=== PATIENT | female | born 1990 | race Two or more races ===

== ENCOUNTER 2017-12-04 16:13 | Emergency (ER) | payer SELFPAY ==
[2017-12-04] MEDS ORDERED: ACETAMINOPHEN 325 MG TABLET PO ONE (17:19)
[2017-12-04 18:05] LABS: ABSOLUTE EOSINOPHILS # (AUTO) 0.1 10^3/uL (0.0-0.6); ABSOLUTE LYMPHOCYTES (AUTO) 1.6 10^3/uL (0.5-4.7); ABSOLUTE MONOCYTES (AUTO) 0.6 10^3/uL (0.1-1.4); ABSOLUTE NEUT (AUTO) 5.6 10^3/uL (1.7-8.2); BASOPHILS % (AUTO) 0.6 % (0-2); HEMATOCRIT 37.2 % (36.0-47.0); HEMOGLOBIN 12.9 g/dL (12.0-15.5); LYMPHOCYTES % (AUTO) 19.7 % (13-45); MEAN CORPUSCULAR HEMOGLOBIN 29.2 pg (27.0-33.4); MEAN CORPUSCULAR HGB CONC 34.7 g/dL (32.0-36.0); MEAN CORPUSCULAR VOLUME 84 fl (80-97); MONOCYTES % (AUTO) 7.3 % (3-13); PLATELET COUNT 202 10^3/uL (150-450); RED BLOOD COUNT 4.43 10^6/uL (3.72-5.28); SEGMENTED NEUTROPHILS % (AUTO) 71.4 % (42-78); TOTAL CELLS COUNTED % (AUTO) 100 %; WHITE BLOOD COUNT 7.9 10^3/uL (4.0-10.5)
[2017-12-04 18:17] LABS: APPEARANCE,URINE CLEAR; BILIRUBIN,URINE NEGATIVE (NEGATIVE); COLOR,URINE STRAW; GLUCOSE, URINE NEGATIVE (NEGATIVE); KETONES,URINE 20 mg/dL (NEGATIVE); LEUKOCYTE ESTERASE,URINE NEGATIVE (NEGATIVE); NITRITE,URINE NEGATIVE (NEGATIVE); PROTEIN,URINE NEGATIVE (NEGATIVE); URINE SPECIFIC GRAVITY 1.005; UROBILINOGEN,URINE NEGATIVE mg/dL (<2.0)
--- NOTE | 2017-12-04 18:32 | RADIOLOGY REPORT (SQ) ---
EXAM DESCRIPTION: U/S 1TRIMESTER/1GEST W/DOPPLER COMPLETED DATE/TIME: 12/04/2017 6:20 pm REASON FOR STUDY: pelvic cramping and bleeding COMPARISON: None. TECHNIQUE: Transabdominal static and realtime grayscale images acquired of the pelvis. Additional se lected spectral and color Doppler images recorded. All images stored on PACs. bHCG: Not drawn PE LIMITATIONS: None. FINDINGS: FETUS: Living intrauterine . EGA: 13 weeks 6 day RALEIGH: 06/05/2018 FHR: 149 beats per minute. SUBCHORIONIC BLEED: No SIZE OF BLEED: Not applicable. UTERUS: No masses or anomalies. 11.2 x 10 x 9.2 cm. CERVICAL LENGTH: 2.2 cm. Closed. RIGHT ADNEXA: Normal ovary with normal vascular flow. 1.7 x 2 x 3 cm PE No adnexal free fluid. No adnexal masses. LEFT ADNEXA: Ovary not seen. No adnexal free fluid. No adnexal masses. FREE FLUID: None. OTHER: No other significant finding. IMPRESSION: LIVING INTRAUTERINE . EGA 13 weeks 6 days. Trimester of : 2nd TECHNICAL DOCUMENTATION: JOB ID: [id number] [employer]- All Rights Reserved Reading location - IP/workstation name: [email or web address]
[2017-12-04 18:33] LABS: ALANINE AMINOTRANSFERASE 20 U/L (9-52); ALBUMIN 3.7 g/dL (3.5-5.0); ALKALINE PHOSPHATASE 31 U/L (38-126); ANION GAP 10 (5-19); ASPARTATE AMINO TRANSFERASE 17 U/L (14-36); BILIRUBIN,DIRECT 0.1 mg/dL (0.0-0.4); BILIRUBIN,TOTAL 0.1 mg/dL (0.2-1.3); BLOOD UREA NITROGEN 10 mg/dL (7-20); CALCIUM 9.3 mg/dL (8.4-10.2); CARBON DIOXIDE 23 mmol/L (22-30); CHLORIDE 103 mmol/L (98-107); GLUCOSE 86 mg/dL (75-110); POTASSIUM 3.6 mmol/L (3.6-5.0); SODIUM 136.4 mmol/L (137-145); TOTAL PROTEIN 6.4 g/dL (6.3-8.2)
[2017-12-04 19:22] LABS: T.VAGINALIS (WET MOUNT) NO TRICHOMONAS SEEN; YEAST (WET MOUNT) NO YEAST SEEN
[2017-12-04 19:23] LABS: BACTERIA (WET MOUNT) 4+ BACTERIA SEEN; WBCS (WET MOUNT) 2+ WBCS SEEN
--- NOTE | 2017-12-04 19:39 | ER Document Report ---
ED GI/ - General Chief Complaint: Vag Bleeding, +preg <12wks Stated Complaint: STOMACH CRAMPING Time Seen by Provider: 12/04/17 17:28 Notes: Patient is a 13 week 27-year-old female presents emergency department the chief complaint of pelvic cramping and vaginal bleeding that started yesterday. She states that she has had spotting on and off for the past month. She states that yesterday she woke up some pelvic cramping that got worse today. She states that she went to the bathroom prior to arrival and noticed one blood clot in her underwear but denies any surrounding white tissue. She denies any vaginal bleeding since then. She admits to cramping but is not taking anything for it. She has any pyuria, hematuria. Admits to vaginal discharge over the past couple of days. [facility] TRAVEL OUTSIDE OF THE [place] IN LAST 30 DAYS: No - Related Data Allergies/Adverse Reactions: No Known Allergies Allergy (Verified 08/11/14 11:07) Past Medical History - Social History Smoking Status: Unknown if Ever Smoked Family History: Reviewed & Not Pertinent Patient has suicidal ideation: No Patient has homicidal ideation: No Renal/ Medical History: Denies: Hx Peritoneal Dialysis - Immunizations Hx Diphtheria, Pertussis, Tetanus Vaccination: Yes Review of Systems - Review of Systems Notes: REVIEW OF SYSTEMS: CONSTITUTIONAL : Denies fever, chills, or sweats. Denies recent illness. CARDIOVASCULAR: Denies chest pain. Denies palpitations or racing or irregular heart beat. Denies ankle edema. RESPIRATORY: Denies cough, cold, or chest congestion. Denies shortness of breath, difficulty breathing, or wheezing. GASTROINTESTINAL: Denies abdominal pain or distention. Denies nausea, vomiting , or diarrhea. Denies blood in vomitus, stools, or per rectum. Denies black, tarry stools. Denies constipation. GENITOURINARY: Denies difficulty urinating, painful urination, burning, frequency, blood in urine, or discharge. FEMALE GENITOURINARY: See HPI MUSCULOSKELETAL: Denies any muscle spasms, difficulty walking, extremity pain SKIN: Denies rash, lesions or sores. NEUROLOGICAL: Denies confusion or altered mental status. Denies passing out or loss of consciousness. Denies dizziness or lightheadedness. Denies headache. Denies weakness or paralysis or loss of use of either side. Denies problems with gait or speech. Denies sensory loss, numbness, or tingling. Denies seizures. PSYCHIATRIC: Denies anxiety or stress. Denies depression, suicidal ideation, or homicidal ideation. ALL OTHER SYSTEMS REVIEWED AND NEGATIVE. Dictation was performed using [employer] voice recognition software Physical Exam - Vital signs Vitals: Temp Pulse Resp BP Pulse Ox 97.8 F 66 14 119/79 100 12/04/17 16:20 12/04/17 16:20 12/04/17 16:20 12/04/17 16:20 12/04/17 16:20 - Notes Notes: PHYSICAL EXAM GENERAL: Alert, interacts well. LUNGS: Clear to auscultation bilaterally, no wheezes, rales, or rhonchi. No respiratory distress. HEART: Regular rate and rhythm. No murmurs, gallops, or rubs. ABDOMEN: Soft, nondistended, nontender. No guarding, rebound, or rigidity.. Bowel sounds present in all 4 quadrants. FEMALE : Normal external exam. No evidence of lesions, lacerations, bruising or vesicles. Speculum exam normal cervix closed. No evidence of vaginal discharge with odor. No evidence of lesions. No vaginal bleeding. Bimanual exam normal no cervical motion tenderness. No adnexal mass or adnexal tenderness. EXTREMITIES: Moves all 4 extremities spontaneously. No edema, radial and dorsalis pedis pulses 2/4 bilaterally. No cyanosis. NEUROLOGICAL: Alert and oriented x4. Normal speech. PSYCH: Normal affect, normal mood. SKIN: Warm, dry, normal turgor. No rashes or lesions noted. Course - Re-evaluation Re-evalutation: 12/04/17 19:39 Patient presents with a isolated event of vaginal bleeding in the setting of an early second trimester . Transvaginal ultrasound with viable IUP with HR of 149. No active bleeding at time of presentation. She is Rh positive. Patient's abdominal exam is otherwise benign without any focal tenderness. I do not suspect an acute appendicitis, pyelonephritis, cystitis, or bowel obstruction. At this time I have informed the patient that she needs to return to the emergency department or the women's clinic in 48 hours for recheck. At this time will discharge with return precautions and follow-up recommendations. Verbal discharge instructions given a the bedside and opportunity for questions given. Medication warnings reviewed. Patient is in agreement with this plan and has verbalized understanding of return precautions and the need for primary care follow-up in the next 24-72 hours. - Vital Signs Vital signs: Temp Pulse Resp BP Pulse Ox 98.1 F 64 16 101/73 99 12/04/17 19:47 12/04/17 19:47 12/04/17 19:47 12/04/17 19:47 12/04/17 19:47 - Laboratory Result Diagrams: 12/04/17 17:44 12/04/17 17:44 Laboratory results interpreted by me: 12/04/17 12/04/17 17:30 17:44 Sodium 136.4 L Total Bilirubin 0.1 L Alkaline Phosphatase 31 L Beta HCG, Quant 47099.00 H Urine Ketones 20 H Discharge - Discharge Clinical Impression: Vaginal bleeding, Pelvic cramping Condition: Good Disposition: HOME, SELF-CARE Additional Instructions: : You are . care is best started as early in as possible. If you're unsure about continuing this , you should discuss this with your physician or with talk show host at [facility]. You should take only medications approved by your physician. Acetaminophen can safely be taken for minor pains. As a rule, medication for chronic conditions such as asthma or seizures can safely be continued. You should discuss with the physician every medicine you take. Any regular exercise program can be continued. Talk to your physician, however, before engaging in competitive or demanding sports. Alcohol, smoking, and "street drugs" are dangerous to your baby. Cocaine is especially dangerous. Don't use any illicit drugs! BLEEDING DURING EARLY : You have been evaluated for passing blood while . While we take this symptom very seriously, most women with your degree of bleeding will go on to have a perfectly normal baby. At this time, there is no indication that a miscarriage will occur. (A miscarriage occurs when the fetus is abnormal. There is no medicine or treatment to prevent it.) A more serious cause of bleeding is tubal (or ectopic) . An ultrasound usually can show whether the is in the uterus or in the tube. Sometimes in early , no fetus is seen. In this case, careful follow-up, including repeat blood tests and repeat ultrasound, is necessary. Do not douche or have sex for at least a week, or until OK'd by the doctor. Don't use tampons. Call the doctor or return for re-examination if there is an increase in bleeding or cramping, extreme weakness, fainting, new abdominal pain, fever, or passage of tissue. FOLLOW-UP CARE: If you have been referred to a physician for follow-up care, call the physician s office for an appointment as you were instructed or within the next two days. If you experience worsening or a significant change in your symptoms (very heavy bleeding with large clots of blood, passage of tissue, more severe abdominal / pelvic pain or cramping, feeling faint or severe weakness, fever, etc.), notify the physician immediately or return to the Emergency Department at any time for re-evaluation. OBSTETRIC-GYNECOLOGIC (OB-WORD PROCESSING MACHINE OPERATOR) PHYSICIANS IN [place]: [facility] [address] [place] [address] [phone] VAGINOSIS, BACTERIAL: Your exam shows you have bacterial vaginosis. This condition is due to an overgrowth of bacteria in the vagina. Symptoms may include vaginal itching or pain, a smelly discharge, and sometimes burning with urination. Normally this is not transmitted by sexual contact. Vaginosis can be treated with oral or topical antibiotics. Metronidazole ( Flagyl) pills are usually effective. Topical vaginal creams include Cleocin and Metro-Gel. You should avoid sexual contact until your symptoms are all better. Call the doctor if you develop pelvic pain, fever, or problems with urination, or if you don't improve as expected. METRONIDAZOLE: Metronidazole (Flagyl) has been prescribed. This medication is used to kill a type of bacteria called anaerobes, and protozoan parasites such as trichomonas and Giardia. Flagyl often causes a metallic taste in the mouth and mild nausea. Do not use alcohol in any form with Flagyl (including alcohol in medication elixirs). Flagyl interacts with alcohol to cause flushing, palpitations, headache, stomach cramps, and vomiting. Do not use Flagyl if you are taking Antabuse (disulfiram). Call the doctor at once if you develop rash, shortness of breath, itching, or lightheadedness. FOLLOW-UP CARE: If you have been referred to a physician for follow-up care, call the physician s office for an appointment as you were instructed or within the next two days. If you experience worsening or a significant change in your symptoms, notify the physician immediately or return to the Emergency Department at any time for re-evaluation. Prescriptions: Metronidazole [Flagyl 500 mg Tablet] 500 mg PO BID #14 tablet Forms: Return to Work [facility] [NO LOCAL MD] - Follow up in 3-5 days
[2017-12-04 19:50] VITALS: BP 101/73
[2017-12-04 20:48] LABS: CHLAM PCR NOT DETECTED (NOT DETECT); GON PCR NOT DETECTED (NOT DETECT)
== END 2017-12-04 19:51 | disposition home or self-care (01) ==
LOC: ER 16:13
DX: O20.9 Hemorrhage in early pregnancy, unspecified (principal); R10.2 Pelvic and perineal pain; Z3A.13 13 weeks gestation of pregnancy
CPT/HCPCS: 36415; 76801; 80053; 81001; 84702; 85025; 86900; 86901; 87210; 87491; 87591; 93976; 99284

== ENCOUNTER 2018-01-02 10:10 | Emergency (ER) | payer SELFPAY ==
[2018-01-02] MEDS ORDERED: GUAIFENESIN 600 MG TABLET.SA PO ONE (10:58)
[2018-01-02 11:22] LABS: APPEARANCE,URINE CLEAR; BILIRUBIN,URINE NEGATIVE (NEGATIVE); COLOR,URINE YELLOW; GLUCOSE, URINE NEGATIVE (NEGATIVE); KETONES,URINE NEGATIVE (NEGATIVE); LEUKOCYTE ESTERASE,URINE NEGATIVE (NEGATIVE); NITRITE,URINE NEGATIVE (NEGATIVE); PROTEIN,URINE NEGATIVE (NEGATIVE); URINE SPECIFIC GRAVITY 1.011; UROBILINOGEN,URINE NEGATIVE mg/dL (<2.0)
[2018-01-02 11:41] LABS: ABSOLUTE BASOPHILS # (AUTO) 0.1 10^3/uL (0.0-0.2); ABSOLUTE LYMPHOCYTES (AUTO) 1.3 10^3/uL (0.5-4.7); ABSOLUTE MONOCYTES (AUTO) 0.6 10^3/uL (0.1-1.4); ABSOLUTE NEUT (AUTO) 6.8 10^3/uL (1.7-8.2); BASOPHILS % (AUTO) 0.6 % (0-2); EOSINOPHILS % (AUTO) 0.5 % (0-6); HEMATOCRIT 37.2 % (36.0-47.0); HEMOGLOBIN 12.9 g/dL (12.0-15.5); LYMPHOCYTES % (AUTO) 15.3 % (13-45); MEAN CORPUSCULAR HEMOGLOBIN 29.8 pg (27.0-33.4); MEAN CORPUSCULAR HGB CONC 34.6 g/dL (32.0-36.0); MEAN CORPUSCULAR VOLUME 86 fl (80-97); MONOCYTES % (AUTO) 6.3 % (3-13); PLATELET COUNT 204 10^3/uL (150-450); RED BLOOD COUNT 4.32 10^6/uL (3.72-5.28); RED CELL DISTRIBUTION WIDTH 13.6 % (11.5-14.0); SEGMENTED NEUTROPHILS % (AUTO) 77.3 % (42-78); TOTAL CELLS COUNTED % (AUTO) 100 %; WHITE BLOOD COUNT 8.8 10^3/uL (4.0-10.5)
[2018-01-02 11:55] LABS: ALANINE AMINOTRANSFERASE 26 U/L (9-52); ALBUMIN 3.6 g/dL (3.5-5.0); ALKALINE PHOSPHATASE 42 U/L (38-126); ANION GAP 10 (5-19); ASPARTATE AMINO TRANSFERASE 23 U/L (14-36); BILIRUBIN,DIRECT 0.2 mg/dL (0.0-0.4); BILIRUBIN,TOTAL 0.3 mg/dL (0.2-1.3); BLOOD UREA NITROGEN 7 mg/dL (7-20); CALCIUM 9.2 mg/dL (8.4-10.2); CARBON DIOXIDE 22 mmol/L (22-30); CHLORIDE 108 mmol/L (98-107); GLUCOSE 84 mg/dL (75-110); SODIUM 139.7 mmol/L (137-145); TOTAL PROTEIN 6.5 g/dL (6.3-8.2)
--- NOTE | 2018-01-02 12:39 | RADIOLOGY REPORT (SQ) ---
EXAM DESCRIPTION: U/S OB 14+ TRNABD 1GES W/O DOP COMPLETED DATE/TIME: 01/02/2018 12:29 pm REASON FOR STUDY: cramping COMPARISON: No previous imaging this TECHNIQUE: Static and Dynamic grayscale imaging performed of gravid uterus using transabdominal appr oach. Additional selected color Doppler and spectral images recorded. All stored on PACS. LIMITATIONS: None. FINDINGS: EGA: 17 weeks 4 days RALEIGH: 06/08/2018 EFW: 200 grams PERCENTILE: Not calculated DERECK: Adequate, largest pocket 4 cm PLACENTA: Posterior, grade 1 PRESENTATION: Variable ANATOMY: HEART RATE: 152 beats per minute. FOUR CHAMBER HEART: Visualized. THREE VESSEL CORD: Yes. CORD INSERTION: Visualized. KIDNEYS AND BLADDER: Kidneys well-visualized. urinary bladder not well seen STOMACH: Visualized. Appears normal. SPINE: Normal as visualized. BRAIN AND LATERAL VENTRICLES: Visualized. Appear normal. OTHER: No other significant finding. MATERNAL ADNEXA: Maternal ovaries not visualized. CERVICAL LENGTH: 3 cm Closed. OTHER: No other significant finding. IMPRESSION: LIVING INTRAUTERINE . ESTIMATED GESTATIONAL AGE 17 weeks 4 days NO VISUALIZED ANOMALIES. Trimester of : Second trimester - 13 weeks 1 day to 27 weeks 6 days. TECHNICAL DOCUMENTATION: JOB ID: [id number] [employer]- All Rights Reserved Reading location - IP/workstation name: [email or web address]
--- NOTE | 2018-01-02 13:00 | ER Document Report ---
ED GI/ - General Chief Complaint: Abdominal Cramping Stated Complaint: PELVIC CRAMPING Time Seen by Provider: 01/02/18 10:47 Mode of Arrival: Ambulatory Information source: Patient Notes: Patient is a 27-year-old approximately 17 week female, and who presents to the ER today for lower abdominal cramping all across the lower abdomen, low back discomfort going on intermittently for "a few months." Patient also complains of lightheadedness that has been going on for approximately 2 weeks, almost to the point of syncope but denies any syncopal episodes. Patient states that these can be when she is standing or sitting, and her "random." She also admits to 3 weeks of productive cough with runny nose, sinus pressure. Patient has not taken anything [id number] for the symptoms because "I was afraid because I am ." She denies any fevers but has not taken her temperature and admits to being cold all the time. She denies any vaginal bleeding or abnormal discharge. TRAVEL OUTSIDE OF THE [place] IN LAST 30 DAYS: No - Related Data Allergies/Adverse Reactions: No Known Allergies Allergy (Verified 08/11/14 11:07) Past Medical History - General Information source: Patient - Social History Smoking Status: Never Smoker Frequency of alcohol use: None Drug Abuse: None Family History: Reviewed & Not Pertinent Patient has suicidal ideation: No Patient has homicidal ideation: No Neurological Medical History: Reports: Hx Migraine Renal/ Medical History: Denies: Hx Peritoneal Dialysis - Immunizations Hx Diphtheria, Pertussis, Tetanus Vaccination: Yes Review of Systems - Review of Systems Constitutional: No symptoms reported EENT: No symptoms reported Cardiovascular: No symptoms reported Respiratory: No symptoms reported Gastrointestinal: No symptoms reported Genitourinary: No symptoms reported. denies: Burning, Dysuria Female Genitourinary: See HPI Musculoskeletal: No symptoms reported Skin: No symptoms reported Hematologic/Lymphatic: No symptoms reported Neurological/Psychological: See HPI Physical Exam - Vital signs Vitals: Temp Pulse Resp BP Pulse Ox 97.6 F 68 16 110/75 100 01/02/18 10:30 01/02/18 10:30 01/02/18 10:30 01/02/18 10:30 01/02/18 10:30 - Notes Notes: PHYSICAL EXAMINATION: GENERAL: Well-appearing, smiling, talkative and in no acute distress. HEAD: Atraumatic, normocephalic. EYES: Pupils equal round and reactive to light, extraocular movements intact, sclera anicteric, conjunctiva are normal. ENT: ear canals without erythema or foreign body, TMs pearly negro with good bony landmarks, nares with mucoid discharge, oropharynx clear without exudates. Moist mucous membranes. Maxillary sinuses tender to palpation NECK: Normal range of motion, supple without lymphadenopathy LUNGS: Productive cough, otherwise CTAB and equal. No wheezes rales or rhonchi. HEART: Regular rate and rhythm without murmurs ABDOMEN: Soft, gravid abdomen, no tenderness. No guarding, no rebound BACK: no vertebral tenderness, normal ROM GI/: no CVA tenderness EXTREMITIES: Normal range of motion, no pitting edema. No cyanosis. NEUROLOGICAL: Cranial nerves grossly intact. Normal sensory/motor exams. PSYCH: Normal mood, normal affect. SKIN: Warm, Dry, normal turgor, no rashes or lesions noted Course - Re-evaluation Re-evalutation: 01/02/18 16:30 Lab work is unremarkable today, hemoglobin is normal, white blood cell count is normal, no evidence of infection on urinalysis today. I will treat patient with amoxicillin and Mucinex DM for sinusitis that she has had symptoms ongoing for approximately 3 weeks without improvement. These are both safe in . Ultrasound reveals a normal intrauterine 17 week gestation heart rate of 152 bpm and no evidence of abnormality. - Vital Signs Vital signs: Temp Pulse Resp BP Pulse Ox 97.7 F 66 18 101/58 L 100 01/02/18 13:21 01/02/18 13:21 01/02/18 13:21 01/02/18 13:21 01/02/18 13:21 - Laboratory Result Diagrams: 01/02/18 11:18 01/02/18 11:18 Laboratory results interpreted by me: 01/02/18 11:18 Chloride 108 H Creatinine 0.46 L Discharge - Discharge Clinical Impression: Acute bacterial sinusitis, Cramping affecting , antepartum Condition: Stable Disposition: HOME, SELF-CARE Additional Instructions: Return immediately for any new or worsening symptoms. Follow up with primary care provider, call tomorrow to make followup appointment. Prescriptions: Amoxicillin 500 mg PO BID #20 capsule Guaifenesin/Dextromethorphan [Mucinex Dm ER 600-30 mg Tablet] 1 each PO BID #25 tab.er.12h Referrals: SUSY RIVERS MD [Primary Care Provider] - Follow up as needed
[2018-01-02 13:22] VITALS: BP 101/58
== END 2018-01-02 13:22 | disposition home or self-care (01) ==
LOC: ER 10:10
DX: O26.92 Pregnancy related conditions, unspecified, second trimester (principal); J01.90 Acute sinusitis, unspecified; B96.89 Other specified bacterial agents as the cause of diseases classified elsewhere; M54.5 Low back pain; R10.2 Pelvic and perineal pain; Z3A.17 17 weeks gestation of pregnancy
CPT/HCPCS: 36415; 76805; 80053; 81001; 85025; 99284

== ENCOUNTER → 2018-01-29 | Outpatient (CLI) | payer OTHER ==
--- NOTE | 2018-01-29 16:00 | RADIOLOGY REPORT (SQ) ---
EXAM DESCRIPTION: U/S OB 14+ TRNABD 1GES W/O DOP COMPLETED DATE/TIME: 01/29/2018 3:15 pm REASON FOR STUDY: ENCNTR FOR SUPRVSN OF NORMAL , UNSP, UNSP TRIMESTER (Z34.90) Z34.90 ENCN TR FOR SUPRVSN OF NORMAL , UNSP, UNSP TR COMPARISON: OB ultrasound 01/02/2018, 12/04/2017 TECHNIQUE: Static and Dynamic grayscale imaging performed of gravid uterus using transabdominal appr oac. Additional selected color Doppler and spectral images recorded. All stored on PACS. LIMITATIONS: None. FINDINGS: EGA: 21 weeks 3 days RALEIGH: 06/08/2018 EFW: 436 grams PERCENTILE: Not calculated DERECK: 11.9 cm PLACENTA: Posterior grade 1 PRESENTATION: Transverse ANATOMY: HEART RATE: 150 beats per minute. FOUR CHAMBER HEART: Visualized. THREE VESSEL CORD: Yes. CORD INSERTION: Visualized. KIDNEYS AND BLADDER: Visualized. Appear normal. STOMACH: Visualized. Appears normal. SPINE: Normal as visualized. BRAIN AND LATERAL VENTRICLES: Visualized. Appear normal. OTHER: No other significant finding. MATERNAL ADNEXA: Maternal ovaries not visualized. CERVICAL LENGTH: 3 cm closed. OTHER: No other significant findings IMPRESSION: LIVING INTRAUTERINE . ESTIMATED GESTATIONAL AGE 21 weeks 3 days NO VISUALIZED ANOMALIES. Trimester of : Second trimester - 13 weeks 1 day to 27 weeks 6 days. TECHNICAL DOCUMENTATION: JOB ID: [id number] [employer]- All Rights Reserved Reading location - IP/workstation name: [email or web address]
== END ==
LOC: RAD 13:55
PROVIDERS: ATTEND Obstetrics & Gynecology
DX: Z34.92 Encounter for supervision of normal pregnancy, unspecified, second trimester (principal)
CPT/HCPCS: 76805

== ENCOUNTER 2018-05-09 10:02 | Outpatient (CLI) | payer OTHER ==
[2018-05-09 10:50] LABS: APPEARANCE,URINE CLEAR; BILIRUBIN,URINE NEGATIVE (NEGATIVE); COLOR,URINE COLORLESS; GLUCOSE, URINE NEGATIVE (NEGATIVE); KETONES,URINE NEGATIVE (NEGATIVE); LEUKOCYTE ESTERASE,URINE NEGATIVE (NEGATIVE); NITRITE,URINE NEGATIVE (NEGATIVE); PROTEIN,URINE NEGATIVE (NEGATIVE); URINE SPECIFIC GRAVITY 1.002; UROBILINOGEN,URINE NEGATIVE mg/dL (<2.0)
[2018-05-09 11:14] LABS: URINE AMPHETAMINES SCREEN NEGATIVE; URINE BARBITURATES SCREEN NEGATIVE; URINE BENZODIAZEPINES SCREEN NEGATIVE; URINE COCAINE SCREEN NEGATIVE; URINE MARIJUANA (THC) SCREEN NEGATIVE; URINE METHADONE SCREEN NEGATIVE; URINE PHENCYCLIDINE SCREEN NEGATIVE
--- NOTE | 2018-05-09 12:42 | Non Stress Test Report ---
Non Stress Test Datetime Report Generated by CPN: 05/09/2018 12:42 DEMOGRAPHIC EGA NST: 35.1 INDICATION Indication for Study: Ordered by Provider MONITORING Monitor Explained: Monitor Explained; Test Explained; Patient Verbalized Understanding Time on Monitor: 05/09/2018 11:05 Time off Monitor: 05/09/2018 12:07 NST Duration: 62 NST INTERVENTIONS NST Interventions: PO Hydration; Reposition Patient Physician Notified NST: C Valente CNM BABY A: [id number] BABY A Movement : Present Contraction Frequency : irreg FHR Baseline : 130 Accelerations : 15X15 Decelerations : None Variability : Moderate 6-25bpm NST Review: Meets Criteria for Reactive NST NST Review and Verified By : GARRETT Alarcon Results: Reactive NST REPORT Report Trigger: Send Report
[2018-05-09 14:49] LABS: CHLAM PCR NOT DETECTED (NOT DETECT); GON PCR NOT DETECTED (NOT DETECT)
== END 2018-05-09 12:41 | disposition home or self-care (01) ==
LOC: LC 10:02
PROVIDERS: ATTEND Obstetrics & Gynecology
PROC: 4A1HXCZ Monitoring of Products of Conception, Cardiac Rate, External Approach (ICD-10-PCS; principal; 2018-05-09)
DX: O26.893 Other specified pregnancy related conditions, third trimester (principal); R10.2 Pelvic and perineal pain; Z3A.35 35 weeks gestation of pregnancy
CPT/HCPCS: 59025; 80307; 81001; 87081; 87086; 87491; 87591

== ENCOUNTER 2018-06-07 18:10 | Inpatient (IN) | payer SELFPAY ==
[2018-06-07 18:58] LABS: APPEARANCE,URINE CLEAR; BILIRUBIN,URINE NEGATIVE (NEGATIVE); COLOR,URINE STRAW; GLUCOSE, URINE NEGATIVE (NEGATIVE); KETONES,URINE NEGATIVE (NEGATIVE); LEUKOCYTE ESTERASE,URINE NEGATIVE (NEGATIVE); NITRITE,URINE NEGATIVE (NEGATIVE); PROTEIN,URINE NEGATIVE (NEGATIVE); URINE SPECIFIC GRAVITY 1.008; UROBILINOGEN,URINE NEGATIVE mg/dL (<2.0)
[2018-06-07 19:12] LABS: BACTERIA (WET MOUNT) 3+ BACTERIA SEEN; EPITHELIALS (WET MOUNT) 4+ EPITHELIALS SEEN; T.VAGINALIS (WET MOUNT) NO TRICHOMONAS SEEN; WBCS (WET MOUNT) FEW WBCS SEEN; YEAST (WET MOUNT) NO YEAST SEEN
[2018-06-07 19:13] LABS: URINE AMPHETAMINES SCREEN NEGATIVE; URINE BARBITURATES SCREEN NEGATIVE; URINE BENZODIAZEPINES SCREEN NEGATIVE; URINE COCAINE SCREEN NEGATIVE; URINE MARIJUANA (THC) SCREEN NEGATIVE; URINE METHADONE SCREEN NEGATIVE; URINE PHENCYCLIDINE SCREEN NEGATIVE
[2018-06-07] MEDS ORDERED: PENICILLIN G-K 5 MILLION UNIT VIAL ONE ×2 (19:31→23:50)
[2018-06-07] MEDS ORDERED: RINGERS SOLUTION,LACTATED 1,000 ML IV PRN (19:43)
[2018-06-07] MEDS ORDERED: PENICILLIN G-K 5 MILLION UNIT VIAL IV ONE (20:15)
[2018-06-07] MEDS ORDERED: PENICILLIN G POTASSIUM 5,000,000 UNIT in DEXTROSE 5%-WATER 100 ML IV ONE (20:15)
[2018-06-07] MEDS ORDERED: OXYTOCIN/NORMAL SALINE 20 UNIT/1,000 ML RTUINJ IV PRN (20:27)
[2018-06-07 20:43] LABS: ABSOLUTE EOSINOPHILS # (AUTO) 0.1 10^3/uL (0.0-0.6); ABSOLUTE LYMPHOCYTES (AUTO) 1.9 10^3/uL (0.5-4.7); ABSOLUTE MONOCYTES (AUTO) 0.8 10^3/uL (0.1-1.4); ABSOLUTE NEUT (AUTO) 6.7 10^3/uL (1.7-8.2); BASOPHILS % (AUTO) 0.5 % (0-2); HEMATOCRIT 38.6 % (36.0-47.0); HEMOGLOBIN 13.3 g/dL (12.0-15.5); LYMPHOCYTES % (AUTO) 19.9 % (13-45); MEAN CORPUSCULAR HEMOGLOBIN 28.9 pg (27.0-33.4); MEAN CORPUSCULAR HGB CONC 34.4 g/dL (32.0-36.0); MEAN CORPUSCULAR VOLUME 84 fl (80-97); MONOCYTES % (AUTO) 8.4 % (3-13); PLATELET COUNT 172 10^3/uL (150-450); RED CELL DISTRIBUTION WIDTH 16.9 % (11.5-14.0); SEGMENTED NEUTROPHILS % (AUTO) 70.2 % (42-78); TOTAL CELLS COUNTED % (AUTO) 100 %; WHITE BLOOD COUNT 9.6 10^3/uL (4.0-10.5)
[2018-06-07] MEDS ORDERED: MISOPROSTOL 0.2 MG TABLET ONE (20:43)
[2018-06-07] MEDS ORDERED: LIDOCAINE 1% INJ-PF (10 MG/ML) 30 ML SDV ONE (20:44)
[2018-06-07] MEDS ORDERED: OXYTOCIN/NORMAL SALINE 20 UNIT/1,000 ML RTUINJ ONE (20:44)
--- NOTE | 2018-06-07 21:59 | Admission Physical ---
Datetime Report Generated by CPN: 06/07/2018 21:59 CURRENT ADMISSION Chief Complaint: Suspected Ruptured Membranes Indication for Induction: PROM Admit Impression : Ruptured Membranes Admit Plan: Admit to Unit; Initiate Labor Induction Protocol ALLERGIES Medication Allergies: No Medication Allergies: No Known Allergies (05/09/2018) Latex: No Latex Allergies Food Allergies: none Environmental Allergies: none OBSTETRICAL HISTORY EDC: 06/12/2018 00:00 : 4 Para: 2 Term: 2 : 0 SAB: 1 IAB: 0 Ectopic: 0 Livin Cesareans: 0 VBACs: 0 Multiple Births: 0 Gestational Diabetes: No Incompetent Cervix: No Infertility: No ART Treatment: No IUGR: No Hx Previous C/S: No Macrosomia: No Hx Loss/Stillborn: No PIH: No Hx : No Placenta Previa/Abruption: No Depression/PP Depression: No PTL/PROM: No Post Hemorrhage: No Current Procedures: Ultrasound Obstetrical History Comments: G1- 38 weeks G2- 2010 SAB at 13 weeks D_C G3- 40 weeks G4- Current limited PNC SEE RECORDS Alcohol: No Marijuana : No Cocaine: No Other Illicit Drugs: No Cigarettes: Never Smoker. [id number] MEDICAL HISTORY Diabetes: No Blood Transfusion: No Pulmonary Disease (Asthma, TB): No Breast Disease: No Hypertension: No Deputy Director Of Finance Surgery: No Heart Disease: No Hosp/Surgery: Yes Autoimmune Disorder: No Anesthetic Complications: No Kidney Disease: No Abnormal Pap Smear: No Neuro/Epilepsy: No Psychiatric Disorders: No Other Medical Diseases: No Hepatitis/Liver Disease: No Significant Family History: No Varicosities/Phlebitis: No Trauma/Violence : No Thyroid Dysfunction: No Medical History Comments: hx of anemia, D_C 2010, childbirth INFECTIOUS HISTORY Gonorrhea: No Genital Herpes: No Chlamydia: No Tuberculosis: No Syphilis: No Hepatitis: No HIV/AIDS Exposure: No Rash or Viral Illness: No HPV: No PHYSICAL EXAM General: Normal HEENT: Normal Neurologic: Normal Thyroid: Normal Heart: Normal Lungs: Normal Breast: Normal Back: Normal Abdomen: Normal Genitourinary Exam: Normal Extremities: Normal DTRs: Normal Pelvic Type: Adequate Vital Signs: Reviewed; Within Normal Limits VAGINAL EXAM Dilatation: 2 Effacement: 50 Station: -2 MEMBRANES Pooling: Positive Membranes: Ruptured Amniotic Fluid Color: Clear FETUS A EGA: 39.2 Monitoring: External US FHR- Baseline: 140s Variability: Moderate 6-25bpm Accelerations: 15X15 Decelerations: None FHR Category: Category I Estimated Weight (gm): 3500 Presentation: Vertex PLANS FOR LABOR AND DELIVERY Labor and Delivery: None Pain Management: Natural Feeding Preference: Breast Benefit of Breast Feed Discussed: Yes Circumcision: N/A INFORMED CONSENT Informed Consent Obtained: Vaginal Delivery Signature: with User ID: [email or web address]
[2018-06-07] MEDS: PENICILLIN G POTASSIUM 2,500,000 UNIT in DEXTROSE 5%-WATER 50 ML IV SCH (23:57)
[2018-06-08] MEDS ORDERED: PENICILLIN G-K 5 MILLION UNIT VIAL ONE ×2 (03:52→07:21)
[2018-06-08] MEDS: PENICILLIN G POTASSIUM 2,500,000 UNIT in DEXTROSE 5%-WATER 50 ML IV SCH ×3 (03:58→12:54)
[2018-06-08] MEDS ORDERED: MAGNESIUM HYDROXIDE SUSP 30 ML UDCUP PO PRN (11:59)
[2018-06-08] MEDS ORDERED: MISOPROSTOL 0.2 MG TABLET PR PRN (11:59)
[2018-06-08] MEDS ORDERED: ZOLPIDEM TARTRATE 5 MG TABLET PO PRN (11:59)
[2018-06-08] MEDS ORDERED: GLYCERIN/WITCH HAZEL LEAF 1 EACH MED..PAD TP PRN (11:59)
[2018-06-08] MEDS ORDERED: PROMETHAZINE HCL 25 MG TABLET PO PRN (11:59)
[2018-06-08] MEDS ORDERED: DIPH/PERTUSS(ACELL)/TETANUS VAC/PF 0.5 ML SYR (>=10YO) IM PRN (11:59)
[2018-06-08] MEDS ORDERED: DIPHENHYDRAMINE HCL 25 MG CAPSULE PO PRN (11:59)
[2018-06-08] MEDS ORDERED: DIBUCAINE 1% OINTMENT 28 GM TP PRN (11:59)
[2018-06-08] MEDS ORDERED: MEASLES,MUMPS&RUBELLA VACC/PF 0.5 ML VIAL SUBCUT PRN (11:59)
[2018-06-08] MEDS ORDERED: BENZOCAINE/MENTHOL AEROSOL SPRAY 56 ML TOP PRN (11:59)
[2018-06-08] MEDS ORDERED: PROMETHAZINE HCL 25 MG SUPP.RECT PR PRN (11:59)
[2018-06-08] MEDS ORDERED: PSEUDOEPHEDRINE HCL 30 MG TABLET PO PRN (11:59)
[2018-06-08] MEDS ORDERED: OXYTOCIN/NORMAL SALINE 20 UNIT/1,000 ML RTUINJ IV PRN (11:59)
[2018-06-08] MEDS ORDERED: ACETAMINOPHEN 650 MG SUPP.RECT PR PRN (11:59)
[2018-06-08] MEDS ORDERED: ACETAMINOPHEN WITH CODEINE #3 TABLET PO PRN ×2 (11:59)
[2018-06-08] MEDS ORDERED: NA PHOS,M-B/NA PHOS,DI-BA (ADULT) 133 ML ENEMA PR PRN (11:59)
[2018-06-08] MEDS ORDERED: PROMETHAZINE HCL INJ 25 MG/1 ML VIAL IV PRN (11:59)
[2018-06-08] MEDS ORDERED: IBUPROFEN 800 MG TABLET ONE (12:08)
[2018-06-08] MEDS ORDERED: ACETAMINOPHEN WITH CODEINE #3 TABLET ONE (12:08)
--- NOTE | 2018-06-08 13:14 | Delivery Summary ---
Del Sum A-C Datetime Report Generated by CPN: 06/08/2018 13:13 DELIVERY PERSONNEL DELIVERY PERSONNEL: [id number] Delivery Doctor:: Randi Valenzuela MD Labor and Delivery Nurse:: Katiana Tony RNclinical nutritionist Nurse:: Kim Goldstein RN Solutions Executive [employer]/STEWARD/STEWARDESS SMOKE ROOM: Amie [place], ST MATERNAL INFORMATION Delivery Anesthesia: None Medications After Delivery: Pitocin Drip 20 Units/1000ml NSS; Cytotec 1000mcg Per Rectum/Vagina Estimated Blood Loss (ml): 100 Maternal Complications: None LABOR SUMMARY EDC: 06/12/2018 00:00 No. Babies in Womb: 1 Attempted: No Labor Anesthesia: None LABOR INFORMATION Reason for Induction: Not Applicable Onset of Labor: 06/08/2018 16:00 Complete Dilatation: 06/08/2018 11:39 Oxytocin: Augmentation Group B Beta Strep: positive Antibiotics # of Doses: 4 Antibiotics Time of Last Dose: 0750 Name of Antibiotic Given: PCN Steroids Given: None Reason Steroids Not Administered: Not Applicable MEMBRANES Membranes Rupture Method: Spontaneous Rupture of Membranes: 06/07/2018 16:00 Length of Rupture (hr): 19.78 Amniotic Fluid Color: Clear Amniotic Fluid Amount: Moderate Amniotic Fluid Odor: Normal STAGES OF LABOR Stage 1 hr: -4 Stage 1 min: -21 Stage 2 hr: 0 Stage 2 min: 8 Stage 3 hr: 0 Stage 3 min: 1 Total Time in Labor hr: -4 Total Time in Labor min: -12 VAGINAL DELIVERY Episiotomy: None Laceration #1: Vaginal Laceration Extension #1: First Degree Laceration Repair: No Sponge Count Correct: Yes Sharps Count Correct: Yes CSECTION DELIVERY Primary Indication: N/A Secondary Indication: N/A CSection Incidence: N/A Labor: N/A Elective: N/A CSection Incision: N/A BABY A INFORMATION Infant Delivery Date/Time: 06/08/2018 11:47 Method of Delivery: Vaginal Born in Route : No : N/A Forceps: N/A Vacuum Extraction: N/A Shoulder Dystocia : No PRESENTATION/POSITION BABY A Presentation: Cephalic Cephalic Presentation: Vertex Vertex Position: Right Occipital Anterior Breech Presentation: N/A PLACENTA INFORMATION BABY A Placenta Delivery Time : 06/08/2018 11:48 Placenta Method of Delivery: Spontaneous Placenta Status: Delivered SCORES BABY A Heart Rate 1 min: >100 bpm Resp Effort 1 min: Good Cry Reflex Irritability 1 min: Cough or Sneeze or Pulls Away Muscle Tone 1 min: Active Motion Color 1 min: Blue/Pale Resuscitation Effort 1 min: Tactile Stimulation SCORE 1 MIN: 8 Heart Rate 5 min: >100 bpm Resp Effort 5 min: Good Cry Reflex Irritability 5 min: Cough or Sneeze or Pulls Away Muscle Tone 5 min: Active Motion Color 5 min: Blue/Pale Resuscitation Effort 5 min: N/A SCORE 5 MIN: 8 INFANT INFORMATION BABY A Gestational Age at Delivery: 39.3 Gestational Status: Full Term- 39- 40.6 Weeks Outcome : Liveborn Condition : Stable Sex: Female WEIGHT/LENGTH BABY A Infant Birthweight (gm): 3220 Infant Weight (lb): 7 Infant Weight (oz): 2 Infant Length (in): 20.50 Length (cm): 52.07 CORD INFORMATION BABY A No. Cord Vessels: 3 Nuchal Cord : N/A Cord Blood Taken: Yes-For Storage (Mom's Blood type +) Suction: None ASSESSMENT BABY A Infant Complications: None Physical Findings at Delivery: Bruising Physical Findings- Other: facial bruising Respirations: Appears Normal Skin to Skin: Yes Skin to Skin Time (min): 90 Tobacco Drying Machine Operator/ALS Called : No Care By: B Baidy RN Transferred To: Remains with Mother BABY B INFORMATION : N/A SIGNATURES Signature: with User ID: [email or web address]
[2018-06-08] MEDS: IBUPROFEN 800 MG TABLET PO SCH ×2 (16:45→22:00)
[2018-06-08] MEDS: FERROUS SULFATE 325 MG TABLET PO SCH (17:55)
[2018-06-08] MEDS: DOCUSATE SODIUM 100 MG CAPSULE PO SCH (17:55)
[2018-06-08] MEDS: FAMOTIDINE 20 MG TABLET PO SCH (21:59)
[2018-06-09] MEDS: IBUPROFEN 800 MG TABLET PO SCH ×3 (05:48→21:45)
[2018-06-09 07:18] LABS: HEMATOCRIT 34.5 % (36.0-47.0); HEMOGLOBIN 11.9 g/dL (12.0-15.5); MEAN CORPUSCULAR HEMOGLOBIN 29.2 pg (27.0-33.4); MEAN CORPUSCULAR HGB CONC 34.5 g/dL (32.0-36.0); MEAN CORPUSCULAR VOLUME 85 fl (80-97); PLATELET COUNT 153 10^3/uL (150-450); RED BLOOD COUNT 4.08 10^6/uL (3.72-5.28); RED CELL DISTRIBUTION WIDTH 17.1 % (11.5-14.0); WHITE BLOOD COUNT 10.1 10^3/uL (4.0-10.5)
--- NOTE | 2018-06-09 09:56 | PDOC PROGRESS REPORT ---
Subjective-OB Progress Note for:: 06/09/18 Subjective: PP Day #1, doing well, no complaints. , A+, Rubella immune Physical Exam (OB) Vital Signs: Temp Pulse Resp BP Pulse Ox 98.2 F 68 18 108/66 100 06/08/18 19:40 06/08/18 19:40 06/08/18 19:40 06/08/18 19:40 06/08/18 19:40 Intake & Output 06/08/18 06/09/18 06/10/18 06:59 06:59 06:59 Intake Total 100 2049 300 Balance 100 2049 300 Weight 62.7 kg - General General Appearance: Appears well, Alert In distress: None - PIH/Pre-Eclampsia Clonus: Negative Headache: Absent Epigastric Pain: No Visual Changes: No - Lochia Lochia Amount: Scant < 10 ml Lochia Color: Rubra/Red - Abdomen Description: Tender, Soft Hernia Present: No Fundal Description: Firm, Midline Fundal Height: u/u - u/2 - HEENT Head: Normocephalic Eyes: Normal - Respiratory Respiratory Status: No respiratory distress - Abdominal Inspection: Normal Distension: No distension - Genitourinary Genitourinary Note: voiding - Extremities Upper extremity: Normal inspection Lower extremities: Normal inspection - Neurological Cognition: Normal Orientation: AAOx4 - Psychological Associated symptoms: Normal affect, Normal mood - Skin Skin Temperature: Warm Skin Moisture: Dry Objective-Diagnostic Laboratory: 06/09/18 06:57 06/09/18 06:57 WBC 10.1 RBC 4.08 Hgb 11.9 L Hct 34.5 L MCV 85 MCH 29.2 MCHC 34.5 RDW 17.1 H Plt Count 153 Assessment and Plan(PN) - Assessment and Plan (1) (normal spontaneous vaginal delivery) Is this a current diagnosis for this admission?: Yes (2) normal course Is this a current diagnosis for this admission?: Yes - Time Spent with Patient Time with patient: Less than 15 minutes - Disposition Anticipated Discharge: Home Within: within 48 hours
[2018-06-09] MEDS ORDERED: PROMETHAZINE HCL INJ 25 MG/1 ML VIAL IV PRN (10:00)
[2018-06-09] MEDS ORDERED: DIPH/PERTUSS(ACELL)/TETANUS VAC/PF 0.5 ML SYR (>=10YO) IM PRN (10:00)
[2018-06-09] MEDS ORDERED: MEASLES,MUMPS&RUBELLA VACC/PF 0.5 ML VIAL SUBCUT PRN (10:00)
[2018-06-09] MEDS: SENNOSIDES/DOCUSATE 8.6-50 MG 1 EACH TABLET PO SCH (10:34)
[2018-06-09] MEDS: FAMOTIDINE 20 MG TABLET PO SCH ×2 (10:34→21:45)
[2018-06-09] MEDS: PRENATAL VITAMIN W DHA CAPSULE PO SCH (10:34)
[2018-06-09] MEDS: FERROUS SULFATE 325 MG TABLET PO SCH ×2 (10:34→17:25)
[2018-06-09] MEDS: DOCUSATE SODIUM 100 MG CAPSULE PO SCH ×2 (10:34→17:25)
[2018-06-10] MEDS: IBUPROFEN 800 MG TABLET PO SCH (06:13)
[2018-06-10] MEDS: DOCUSATE SODIUM 100 MG CAPSULE PO SCH (09:00)
[2018-06-10] MEDS: SENNOSIDES/DOCUSATE 8.6-50 MG 1 EACH TABLET PO SCH (09:00)
[2018-06-10] MEDS: FAMOTIDINE 20 MG TABLET PO SCH (09:00)
[2018-06-10] MEDS: PRENATAL VITAMIN W DHA CAPSULE PO SCH (09:00)
[2018-06-10] MEDS: FERROUS SULFATE 325 MG TABLET PO SCH (09:00)
--- NOTE | 2018-06-10 10:39 | PDOC DISCHARGE SUMMARY ---
Final Diagnosis Discharge Date: 06/10/18 Discharge Data - Discharge Medication Prescriptions: Ibuprofen [Motrin 800 mg Tablet] 800 mg PO Q8HP PRN #30 tablet PRN Reason: Home Medications: Pnv,Calcium 72/Iron,Carb/Folic [ Plus Iron Tablet] 1 tab PO DAILY Ibuprofen [Motrin 800 mg Tablet] 800 mg PO Q8HP PRN #30 tablet 06/10/18 Procedures: NST Intrapartum Procedure(s): Spontaneous Vaginal Delivery - Diagnosis Test Laboratory: Temp Pulse Resp BP Pulse Ox 97.8 F 69 16 105/67 98 06/10/18 07:58 06/10/18 07:58 06/10/18 07:58 06/10/18 07:58 06/10/18 07:58 06/07/18 06/07/18 06/09/18 18:34 20:30 06:57 RBC 4.60 4.08 Hgb 13.3 11.9 L Hct 38.6 34.5 L Urine Opiates Screen NEGATIVE - Discharge information/Instructions Discharge Activity: Balance Activity w/Rest, Pelvic Rest Discharge Diet: Regular Disposition: HOME, SELF-CARE Follow up with: [facility] in: 4, Weeks
[2018-06-10 10:57] VITALS: BP 105/67
== END 2018-06-10 13:06 | disposition home or self-care (01) | DRG 807 ==
LOC: LC 18:10 → LR 19:17 → 2S 06-08 14:30
PROVIDERS: ADMIT Obstetrics & Gynecology; ATTEND Obstetrics & Gynecology
PROC: 10E0XZZ Delivery of Products of Conception, External Approach (ICD-10-PCS; principal; 2018-06-08)
DX: O42.02 Full-term premature rupture of membranes, onset of labor within 24 hours of rupture (principal); Z37.0 Single live birth; O99.824 Streptococcus B carrier state complicating childbirth; O70.0 First degree perineal laceration during delivery; Z3A.39 39 weeks gestation of pregnancy
CPT/HCPCS: 36415; 80307; 81005; 84112; 85025; 85027; 86592; 86850; 86900; 86901; 87210; 90471; 90686; 90715; G0008; J2540; J2590; J3490

== ENCOUNTER → 2020-02-10 | Outpatient (CLI) | payer SELFPAY ==
--- NOTE | 2020-02-10 14:07 | RADIOLOGY REPORT (SQ) ---
EXAM DESCRIPTION: U/S [id number] TRNABD 1GES W/ODOP IMAGES COMPLETED DATE/TIME: 02/10/2020 1:35 pm REASON FOR STUDY: Z34.81 ENCOUNTER FOR SUPRVSN OF NORMAL , FIRST TRIMESTER Z34.81 ENCOUNTE R FOR SUPRVSN OF NORMAL , FIRST TRIM COMPARISON: None. TECHNIQUE: Transabdominal static and realtime grayscale images acquired of the pelvis. Additional se lected spectral and color Doppler images recorded. All images stored on PACs. bHCG: Not applicable. CLINICAL DATES: LMP 11/27/2019. EGA based on LMP 10 weeks 4 days. R[place] based on LMP 09/03/2019. LIMITATIONS: None. FINDINGS: FETUS: Single Living intrauterine . ULTRASOUND EGA: 10 weeks 4 days. ULTRASOUND RALE[place]: 09/03/2019. CRL: 3.7 cm. FHR: 165 beats per minute. SURVEY: Too early to assess. AMNIOTIC FLUID: Too early to assess. PLACENTA: Too early to assess. SUBCHORIONIC BLEED: Yes. SIZE OF BLEED: 2 x 1.5 x 1.2 cm. UTERUS: The uterus measures 11.4 x 9 x 8 cm. There is an intrauterine gestational sac that contains an embryo. CERVICAL LENGTH: 3.7 cm Closed. RIGHT ADNEXA: The right ovary measures 3.5 x 1.8 x 2 cm and on Doppler there is intact arterial inflo w and venous outflow within the ovarian stroma. There is a corpus luteum cyst in the right ovary manjinder t measures 1.8 x 1.3 x 1.5 cm. LEFT ADNEXA: The left ovary measures 3.2 x 2.3 x 1.9 cm and on Doppler there is intact arterial inflo w and venous outflow within the ovarian stroma. There is no adnexal mass. FREE FLUID: None. OTHER: No other finding. IMPRESSION: LIVE INTRAUTERINE . EGA 10 weeks 4 days based on LMP with concordant biometric parameters. SUBCHRONIC HEMORRHAGE THAT MEASURES 2 X 1.5 X 1.2 CM. CORE POST LUTEUM CYST IN THE RIGHT OVARY THAT MEASURES 1.8 X 1.3 X 1.5 CM. Trimester of : First trimester - 0 to 13 weeks. TECHNICAL DOCUMENTATION: JOB ID: [id number] 2010 [employer]- All Rights Reserved rev Reading location - IP/workstation name: [email or web address]
== END ==
LOC: RAD 12:57
PROVIDERS: ATTEND Midwife
DX: O34.81 Maternal care for other abnormalities of pelvic organs, first trimester (principal); N83.12 Corpus luteum cyst of left ovary; Z3A.10 10 weeks gestation of pregnancy
CPT/HCPCS: 76801

== ENCOUNTER → 2020-04-14 | Outpatient (CLI) | payer SELFPAY ==
--- NOTE | 2020-04-14 16:07 | RADIOLOGY REPORT (SQ) ---
EXAM DESCRIPTION: U/S OB 14+ TRNABD 1GES W/O DOP IMAGES COMPLETED DATE/TIME: 04/14/2020 2:32 pm REASON FOR STUDY: Z34.82 ENCOUNTER FOR SUPRVSN OF NORMAL , SECOND TRIMESTER Z34.82 ENCOUNT ER FOR SUPRVSN OF NORMAL , SECOND TRI COMPARISON: 02/10/2020 TECHNIQUE: Static and Dynamic grayscale imaging performed of gravid uterus using transabdominal appr oach. Additional selected color Doppler and spectral images recorded. All stored on PACS. LIMITATIONS: None. FINDINGS: FETUSES SEEN:1 EGA: 19 weeks 4 days Calculated using BPD,FL,HC,AC documented on images. No discrepancy with clinica l dates. RALEIGH: 09/04/2020 EFW: 306 grams PERCENTILE: Not applicable. Fetus less than or equal to 20 weeks gestation. LVP: 6.3 cm PLACENTA: Anterior. GRADE: I PRESENTATION: Breech. ANATOMY: HEART RATE: 147 beats per minute. FOUR CHAMBER HEART: Visualized. THREE VESSEL CORD: Yes. CORD INSERTION: Visualized. KIDNEYS AND BLADDER: Visualized. Appear normal. STOMACH: Visualized. Appears normal. SPINE: Normal as visualized. BRAIN AND LATERAL VENTRICLES: Visualized. Appear normal. OTHER: No other significant finding. MATERNAL ADNEXA: Maternal ovaries not visualized. CERVICAL LENGTH: 2.9 cm. Closed. OTHER: No other significant finding. IMPRESSION: LIVING INTRAUTERINE . ESTIMATED GESTATIONAL AGE 19 weeks 4 days. NO VISUALIZED ANOMALIES. Trimester of : Second trimester - 13 weeks 1 day to 27 weeks 6 days. TECHNICAL DOCUMENTATION: JOB ID: [id number] 2010 [employer]- All Rights Reserved Reading location - IP/workstation name: [email or web address]
== END ==
LOC: RAD 14:04
PROVIDERS: ATTEND Nurse Practitioner Family
DX: Z34.82 Encounter for supervision of other normal pregnancy, second trimester (principal); Z3A.19 19 weeks gestation of pregnancy
CPT/HCPCS: 76805

== ENCOUNTER 2020-06-27 16:27 | Outpatient (CLI) | payer SELFPAY ==
[2020-06-27 17:34] LABS: APPEARANCE,URINE CLEAR; BILIRUBIN,URINE NEGATIVE (NEGATIVE); COLOR,URINE STRAW; GLUCOSE, URINE NEGATIVE (NEGATIVE); KETONES,URINE NEGATIVE (NEGATIVE); LEUKOCYTE ESTERASE,URINE NEGATIVE (NEGATIVE); NITRITE,URINE NEGATIVE (NEGATIVE); PROTEIN,URINE NEGATIVE (NEGATIVE); URINE SPECIFIC GRAVITY 1.004; UROBILINOGEN,URINE NEGATIVE mg/dL (<2.0)
[2020-06-27 18:03] LABS: URINE AMPHETAMINES SCREEN NEGATIVE; URINE BARBITURATES SCREEN NEGATIVE; URINE BENZODIAZEPINES SCREEN NEGATIVE; URINE COCAINE SCREEN NEGATIVE; URINE MARIJUANA (THC) SCREEN NEGATIVE; URINE METHADONE SCREEN NEGATIVE; URINE PHENCYCLIDINE SCREEN NEGATIVE
--- NOTE | 2020-06-27 19:34 | RADIOLOGY REPORT (SQ) ---
EXAM DESCRIPTION: U/S OB LIMITED IMAGES COMPLETED DATE/TIME: 06/27/2020 6:23 pm REASON FOR STUDY: cervical length COMPARISON: 04/14/2020 TECHNIQUE: Limited transabdominal grayscale ultrasound for evaluation of specific requested obstetri yfn parameters. LIMITATIONS: None. FINDINGS: CERVICAL LENGTH: 3.9 cm. Closed. DERECK: 14 cm. Cm. FHR: 144 beats per minute. PRESENTATION: Cephalic. PLACENTA: Anterior, grade 1, apparent placental lakes. Cannot exclude retroplacental hematoma. ANATOMY: Not assessed OTHER: No other significant findings. IMPRESSION: 31 week gestation. Cannot exclude placental lakes versus retroplacental hematoma. Trimester of : Third trimester - 28 weeks to delivery. TECHNICAL DOCUMENTATION: JOB ID: [id number] 2010 [employer]- All Rights Reserved Reading location - IP/workstation name: [email or web address]
== END 2020-06-27 18:35 | disposition home or self-care (01) ==
LOC: LC 16:27
PROVIDERS: ATTEND Specialist
DX: O26.893 Other specified pregnancy related conditions, third trimester (principal); R10.30 Lower abdominal pain, unspecified; Z3A.31 31 weeks gestation of pregnancy; Z02.83 Encounter for blood-alcohol and blood-drug test
CPT/HCPCS: 76815; 80307; 81001; 84112

== ENCOUNTER 2020-08-30 16:18 | Inpatient (IN) | payer SELFPAY ==
[2020-08-30 17:13] LABS: APPEARANCE,URINE CLEAR; BILIRUBIN,URINE NEGATIVE (NEGATIVE); COLOR,URINE COLORLESS; GLUCOSE, URINE NEGATIVE (NEGATIVE); KETONES,URINE NEGATIVE (NEGATIVE); LEUKOCYTE ESTERASE,URINE NEGATIVE (NEGATIVE); NITRITE,URINE NEGATIVE (NEGATIVE); PROTEIN,URINE NEGATIVE (NEGATIVE); URINE SPECIFIC GRAVITY 1.002; UROBILINOGEN,URINE NEGATIVE mg/dL (<2.0)
[2020-08-30 17:30] LABS: URINE AMPHETAMINES SCREEN NEGATIVE; URINE BARBITURATES SCREEN NEGATIVE; URINE BENZODIAZEPINES SCREEN NEGATIVE; URINE COCAINE SCREEN NEGATIVE; URINE MARIJUANA (THC) SCREEN NEGATIVE; URINE METHADONE SCREEN NEGATIVE; URINE PHENCYCLIDINE SCREEN NEGATIVE
[2020-08-30] MEDS ORDERED: RINGERS SOLUTION,LACTATED 1,000 ML IV PRN (17:54)
[2020-08-30] MEDS ORDERED: MISOPROSTOL 0.2 MG TABLET ONE (18:24)
[2020-08-30] MEDS ORDERED: OXYTOCIN 10 UNIT/ML VIAL ONE (18:24)
[2020-08-30] MEDS ORDERED: LIDOCAINE 1% INJ-PF (10 MG/ML) 30 ML SDV ONE (18:25)
[2020-08-30] MEDS ORDERED: OXYTOCIN/0.9 % SODIUM CHLORIDE 30 UNIT/500 ML RTUINJ ONE (18:25)
[2020-08-30 18:33] LABS: ABSOLUTE LYMPHOCYTES (AUTO) 1.4 10^3/uL (0.5-4.7); ABSOLUTE MONOCYTES (AUTO) 0.4 10^3/uL (0.1-1.4); ABSOLUTE NEUT (AUTO) 4.4 10^3/uL (1.7-8.2); BASOPHILS % (AUTO) 0.6 % (0-2); EOSINOPHILS % (AUTO) 0.6 % (0-6); HEMATOCRIT 32.7 % (36.0-47.0); HEMOGLOBIN 11.5 g/dL (12.0-15.5); LYMPHOCYTES % (AUTO) 22.1 % (13-45); MEAN CORPUSCULAR HEMOGLOBIN 29.1 pg (27.0-33.4); MEAN CORPUSCULAR HGB CONC 35.3 g/dL (32.0-36.0); MEAN CORPUSCULAR VOLUME 83 fl (80-97); PLATELET COUNT 173 10^3/uL (150-450); RED BLOOD COUNT 3.96 10^6/uL (3.72-5.28); RED CELL DISTRIBUTION WIDTH 14.3 % (11.5-14.0); SEGMENTED NEUTROPHILS % (AUTO) 69.7 % (42-78); TOTAL CELLS COUNTED % (AUTO) 100 %; WHITE BLOOD COUNT 6.4 10^3/uL (4.0-10.5)
[2020-08-30] MEDS ORDERED: OXYTOCIN/0.9 % SODIUM CHLORIDE 30 UNIT/500 ML RTUINJ IV PRN (21:56)
[2020-08-30] MEDS ORDERED: MISOPROSTOL 0.2 MG TABLET PR PRN (21:56)
--- NOTE | 2020-08-30 22:20 | Admission Physical ---
Datetime Report Generated by CPN: 08/30/2020 22:19 CURRENT ADMISSION Chief Complaint: Uterine Contractions; Suspected Ruptured Membranes Chief Complaint Other: Complaints of SROM at 0100 today. Clear fluid. Admit Impression : Term, Intrauterine ; Active Labor; Ruptured Membranes Admit Plan: Admit to Unit; Initiate Labor Protocol; Initiate Labor Augmentation Protocol ALLERGIES Medication Allergies: No Medication Allergies: No Known Allergies (05/09/2018) Latex: No Latex Allergies Food Allergies: none Environmental Allergies: none OBSTETRICAL HISTORY EDC: 08/29/2020 00:00 : 5 Para: 3 Term: 3 : 0 SAB: 1 IAB: 0 Ectopic: 0 Livin Cesareans: 0 VBACs: 0 Multiple Births: 0 Gestational Diabetes: No Rh Sensitization: No Incompetent Cervix: No YULIYA: No Infertility: No ART Treatment: No Uterine Anomaly: No IUGR: No Hx Previous C/S: No Macrosomia: No Hx Loss/Stillborn: No PIH: No Hx : No Placenta Previa/Abruption: No Depression/PP Depression: Yes PTL/PROM: No Post Hemorrhage: No Current Procedures: Ultrasound; NST Obstetrical History Comments: G1- 05/02/2008 BB 38 weeks no complications all natural G2- SAB 06/06/2011 16 weeks G3- 05/07/2013 BB 40 weeks no complications all natural G4- 06/08/2018 BG 40 weeks no complications IV pain meds, GBS received PCN G5- current, dzzy/fainting spells, low BP SEE RECORDS Alcohol: No Marijuana : No Cocaine: No Other Illicit Drugs: No Cigarettes: Never Smoker. [id number] MEDICAL HISTORY Diabetes: No Blood Transfusion: No Pulmonary Disease (Asthma, TB): Yes Breast Disease: No Hypertension: No Condenser Cleaner Surgery: No Heart Disease: No Hosp/Surgery: Yes Autoimmune Disorder: No Anesthetic Complications: No Kidney Disease: No Abnormal Pap Smear: No Neuro/Epilepsy: No Psychiatric Disorders: No Other Medical Diseases: No Hepatitis/Liver Disease: No Significant Family History: No Varicosities/Phlebitis: No Trauma/Violence : No Thyroid Dysfunction: No Medical History Comments: Asthma, X3, anemia INFECTIOUS HISTORY Gonorrhea: No Genital Herpes: No Chlamydia: No Tuberculosis: No Syphilis: No Hepatitis: No HIV/AIDS Exposure: No Rash or Viral Illness: No HPV: No PHYSICAL EXAM General: Normal HEENT: Normal Neurologic: Normal Thyroid: Normal Heart: Normal Lungs: Normal Breast: Normal Back: Normal Abdomen: Normal Genitourinary Exam: Normal Extremities: Normal DTRs: Normal Pelvic Type: Adequate Vital Signs: Reviewed; Within Normal Limits VAGINAL EXAM Dilatation: 4 Effacement: 90 Station: -1 Contraction Comments: contractions every 7 minutes MEMBRANES Pooling: Positive Membranes: Ruptured Amniotic Fluid Color: Clear FETUS A EGA: 40.1 Monitoring: External US FHR- Baseline: 135 Variability: Moderate 6-25bpm Accelerations: 15X15 Decelerations: None FHR Category: Category I Presentation: Vertex Admit Comment: at 40.1 wks EGA in active labor with SROM at 0100 -Admit to LDR -NPO and IVFs: LR at 125 cc/hr after 1 liter bolus -GBS negative -CEFM and toco -hx of three prior SVDs -ANticipate -WIll augment with pitocin low dose if contractions space out or no cervical change. PLANS FOR LABOR AND DELIVERY Labor and Delivery: None Pain Management: Natural Feeding Preference: Both Benefit of Breast Feed Discussed: Yes Circumcision: N/A INFORMED CONSENT Informed Consent Obtained: Vaginal Delivery; Section Delivery; Vacuum/Forceps Assist; Risks, Benefits and Alternatives Discussed Signature: with User ID: [email or web address] : with User ID: [email or web address]
[2020-08-31] MEDS ORDERED: OXYTOCIN/0.9 % SODIUM CHLORIDE 30 UNIT/500 ML RTUINJ IV PRN (00:16)
[2020-08-31] MEDS ORDERED: FAMOTIDINE 20 MG TABLET PO PRN (00:16)
[2020-08-31] MEDS ORDERED: DIBUCAINE 1% OINTMENT 28 GM TP PRN (00:16)
[2020-08-31] MEDS ORDERED: BENZOCAINE/MENTHOL AEROSOL SPRAY 56 ML TOP PRN (00:16)
[2020-08-31] MEDS ORDERED: GLYCERIN/WITCH HAZEL LEAF 1 EACH MED..WIPE TP PRN (00:16)
[2020-08-31] MEDS ORDERED: VARICELLA VACC/PF (1350 UNIT/0.5 ML) 0.5 ML VIAL SUBCUT PRN (00:16)
[2020-08-31] MEDS ORDERED: MAG HYDROX/AL HYDROX/SIMETH SUSP 30 ML UDCUP PO PRN (00:16)
[2020-08-31] MEDS ORDERED: ACETAMINOPHEN WITH CODEINE #3 TABLET PO PRN (00:16)
[2020-08-31] MEDS ORDERED: DIPHENHYDRAMINE HCL 25 MG CAPSULE PO PRN (00:16)
[2020-08-31] MEDS ORDERED: ZOLPIDEM TARTRATE 5 MG TABLET PO PRN (00:16)
[2020-08-31] MEDS ORDERED: DIPH/PERTUSS(ACELL)/TETANUS VAC/PF 0.5 ML SYR (>=10YO) IM PRN (00:16)
[2020-08-31] MEDS ORDERED: MAGNESIUM HYDROXIDE SUSP 30 ML UDCUP PO PRN (00:16)
[2020-08-31] MEDS ORDERED: MEASLES,MUMPS&RUBELLA VACC/PF 0.5 ML VIAL SUBCUT PRN (00:16)
[2020-08-31] MEDS ORDERED: ACETAMINOPHEN 650 MG SUPP.RECT PR PRN (00:16)
[2020-08-31] MEDS ORDERED: ACETAMINOPHEN 325 MG TABLET PO PRN (00:16)
[2020-08-31] MEDS ORDERED: PSEUDOEPHEDRINE HCL 30 MG TABLET PO PRN (00:16)
[2020-08-31] MEDS ORDERED: IBUPROFEN 800 MG TABLET ONE (00:22)
--- NOTE | 2020-08-31 02:02 | Delivery Summary ---
Del Sum A-C Datetime Report Generated by CPN: 08/31/2020 02:01 DELIVERY PERSONNEL DELIVERY PERSONNEL: [id number] Delivery Doctor:: Samara Grady MD Labor and Delivery Nurse:: Wander Fuller RNhigh school learning support teacher Nurse:: Andra Carrillo, RNC Gold Reclaimer/ARMHOLE FELLER HANDSTITCHING MACHINE: Onelia Green, ST MATERNAL INFORMATION Delivery Anesthesia: None Medications After Delivery: Pitocin 30 Units in 500ml NS/D5W Delivery QBL: 150 Maternal Complications: None Provider Comments: Called to patients room as she was complete and +3 station with urge to push. Pushed through one contraction and delivered a viable female infant. Nuchal x1, unable to reduce but delivered through easily. vigorous at delivery and therefore cord clamping delayed for 30 seconds. Once cord doubly clamped and cut, placed skin to skin with mother. Both infant and Mother stable condition. LABOR SUMMARY EDC: 08/29/2020 00:00 No. Babies in Womb: 1 Attempted: No Labor Anesthesia: None LABOR INFORMATION Reason for Induction: Not Applicable Onset of Labor: 08/30/2020 17:21 Complete Dilatation: 08/31/2020 00:00 Oxytocin: Augmentation Group B Beta Strep: Negative Antibiotics # of Doses: 0 Name of Antibiotic Given: n/a Steroids Given: None Reason Steroids Not Administered: Not Applicable MEMBRANES Membranes Rupture Method: Spontaneous Rupture of Membranes: 08/30/2020 01:00 Length of Rupture (hr): 23.05 Amniotic Fluid Color: Clear Amniotic Fluid Amount: Small Amniotic Fluid Odor: Normal STAGES OF LABOR Stage 1 hr: 6 Stage 1 min: 39 Stage 2 hr: 0 Stage 2 min: 3 Stage 3 hr: 0 Stage 3 min: 3 Total Time in Labor hr: 6 Total Time in Labor min: 45 VAGINAL DELIVERY Episiotomy: None Laceration #1: Perineal Laceration Extension #1: First Degree Laceration Repair: Yes Laceration Repair Note: Repaired with 3-0 chromic in a running fashion Sponge Count Correct: Yes Sharps Count Correct: Yes CSECTION DELIVERY Primary Indication: N/A Secondary Indication: N/A CSection Incidence: N/A Labor: N/A Elective: N/A CSection Incision: N/A BABY A INFORMATION Infant Delivery Date/Time: 08/31/2020 00:03 Method of Delivery: Vaginal Nurse Controlled Delivery: No Born in Route : No : N/A Forceps: N/A Vacuum Extraction: N/A Shoulder Dystocia : No PRESENTATION/POSITION BABY A Presentation: Cephalic Cephalic Presentation: Vertex Vertex Position: Left Occipital Anterior Breech Presentation: N/A PLACENTA INFORMATION BABY A Placenta Delivery Time : 08/31/2020 00:06 Placenta Method of Delivery: Spontaneous Placenta Status: Delivered SCORES BABY A Heart Rate 1 min: >100 bpm Resp Effort 1 min: Good Cry Reflex Irritability 1 min: Cough or Sneeze or Pulls Away Muscle Tone 1 min: Active Motion Color 1 min: Body [place], Extremities Blue Resuscitation Effort 1 min: Tactile Stimulation SCORE 1 MIN: 9 Heart Rate 5 min: >100 bpm Resp Effort 5 min: Good Cry Reflex Irritability 5 min: Cough or Sneeze or Pulls Away Muscle Tone 5 min: Active Motion Color 5 min: Body [place], Extremities Blue Resuscitation Effort 5 min: Tactile Stimulation SCORE 5 MIN: 9 INFORMATION BABY A Gestational Age at Delivery: 40.1 Gestational Status: Full Term- 39- 40.6 Weeks Outcome : Liveborn Condition : Stable Sex: Female IDENTIFICATION BABY A Verification Date/Time: 08/31/2020 00:33 ID Band Number: [id number] Mother's Name Verified: Yes RN Verifying Infant: D Bellavance RN Additional Verifying Personnel: Cubby Jonny RN WEIGHT/LENGTH BABY A Birthweight (gm): 3329 Infant Weight (lb): 7 Infant Weight (oz): 5 Length (in): 20.50 Infant Length (cm): 52.07 CORD INFORMATION BABY A No. Cord Vessels: 3 Nuchal Cord : Around Neck x1, Tight Cord Blood Taken: Yes-For Storage (Mom's Blood type +) Infant Suction: None ASSESSMENT BABY A Complications: None Physical Findings at Delivery: Within Normal Limits Respirations: Appears Normal Skin to Skin: Yes Pipe Tester/ALS Called : No Infant Care By: D Bellavance RN Transferred To: Remains with Mother BABY B INFORMATION : N/A SIGNATURES Signature: with User ID: [email or web address] : with User ID: [email or web address]
--- NOTE | 2020-08-31 02:02 | Birth Certificate Data ---
Cert Data Datetime Report Generated by CPPatricia: 08/31/2020 02:01 CERTIFICATE DATA Delivery Provider: Samara Grady MD (06/27/2020 17:36:Andra Carrillo RNC) 47a. Care: Yes (06/27/2020 17:36:Dayana Tabor RN) 47b. Date of First Visit: 01/27/2020 00:00 (06/27/2020 17:36:Dayana Tabor RN) 47c. Date of Last Visit: 08/08/2020 00:00 (06/27/2020 17:36:Dayana Tabor RN) 47d. Number of Visits: 12 (06/27/2020 17:36:Dayana Tabor RN) 48a. Number of Prev Live Births: 3 (06/27/2020 17:36:Dayana Tabor RN) 48b. Now Livin (06/27/2020 17:36:Tammy Vargas RN) 48c. Live Births Now : 0 (06/27/2020 17:36:QS system process) 48d. Date of Last Live : 06/08/2018 00:00 (06/27/2020 17:36:Dayana Tabor RN) 48e. Losses: 1 (06/27/2020 17:36:Dayana Tabor RN) 48f. Date of Last Preg Loss: 06/06/2011 00:00 (06/27/2020 17:36:Dayana Tabor RN) RISK FACTORS IN THIS 49a. Diabetes: No (06/27/2020 17:36:Dayana Tabor RN) 49b. Hypertension: No (06/27/2020 17:36:Dayana Tabor RN) 49c. Previous Births: 0 (06/27/2020 17:36:Tammy Vargas RN) 49d. Stillborns: No (06/27/2020 17:36:Dayana Tabor RN) 49d. IUGR: No (06/27/2020 17:36:Dayana Tabor RN) 49e. Infertility Treatment: No (06/27/2020 17:36:Dayana Tabor RN) 49f. Previous Cesareans: 0 (06/27/2020 17:36:Dayana Tabor RN) Mother's Height 50b. Height Inches: 61 (08/31/2020 01:46:QS system process) Mother's Weight 51a. Pre- Weight (lbs): 123 (06/27/2020 17:36:Wander Fuller RN) 51b. Weight at Delivery (lbs): 134 (08/31/2020 01:46:QS system process) 52. Dt Last Normal Menses Began: 11/23/2019 00:00 (06/27/2020 17:36:Wander Fuller RN) Infections Present/Treated 53a. Gonorrhea: No (06/27/2020 17:36:Dayana Tabor RN) Results this Hospital Visit : Negative (06/27/2020 17:36:Dayana Tabor RN) 53b. Syphilis: No (06/27/2020 17:36:Dayana Tabor RN) 53c. Chlamydia: No (06/27/2020 17:36:Dayana Tabor RN) Results this Hospital Visit: Negative (06/27/2020 17:36:Dayana Tabor RN) 53d. Hepatitis B: No (06/27/2020 17:36:Dayana Tabor RN) Results this Hospital Visit: Negative (06/27/2020 17:36:Dayana Tabor RN) 53e. Hepatitis C: Negative (06/27/2020 17:36:Dayana Tabor RN) 53h. Mother Tested for HBsAG: Yes (06/27/2020 17:36:Dayana Tabor RN) 53i. Date Tested: 02/16/2020 00:00 (06/27/2020 17:36:Dayana Tabor RN) 53j. Test Result: Negative (06/27/2020 17:36:Dayana Tabor RN) Obstetric Procedures 54a, b, c. Obstetric Procedures: Ultrasound; NST (06/27/202036:Wander Fuller RN) Cigarette Smoking Cigarette Smoking: Never Smoker. [id number] (06/27/2020 17:36:Dayana Tabor RN) 55a. 3 Months Before Preg - Ci (06/27/2020 17:36:Wander Fuller RN) 55a. Packs: 0 (06/27/2020 17:36:Wander Fuller RN) 55b. 1st Trimester of Preg- Ci (06/27/2020 17:36:Wander Fuller RN) 55b. Packs: 0 (06/27/2020 17:36:Wander Fuller RN) 55c. 2nd Trimester of Preg- Ci (06/27/2020 17:36:Wander Fuller RN) 55c. Packs: 0 (06/27/2020 17:36:Wander Fuller RN) 55d. 3rd Trimester of Preg- Ci (06/27/2020 17:36:Wander Fuller RN) 55d. Packs: 0 (06/27/2020 17:36:Wander Fuller RN) Onset of Labor 56a. PROM >12 Hrs: 23.05 (08/30/2020 17:55:QS system process) 56b. Precipitous Labor <3 Hrs: 6 (06/27/2020 17:36:QS system process) 56c. Prolonged Labor > 20 Hrs: 6 (06/27/2020 17:36:QS system process) 57a. Induction of Labor: Augmentation (06/27/2020 17:36:RADHA Lopez) 57c. Non-Vertex Presentation A: Vertex (06/27/2020 17:36:RADHA Lopez) 57d. Steroids - Lung Mat: None (06/27/2020 17:36:RADHA Lopez) 57d. Steroids - Lung Mat: Not Applicable (06/27/2020 17:36:RADHA Lopez) 57f. Mat [place] or Temp >100.4: 98.4 (06/27/2020 17:36:RADHA Lopez) 57g. Moderate/Heavy Meconium: Clear (08/30/2020 17:55:Dayana Tabor RN) 57h. Intolerance of Labor: N/A (06/27/2020 17:36:Wander Fuller RN) : N/A (06/27/2020 17:36:Wander Fuller RN) 57i. Epidural/Spinal Anesthesia: None (06/27/2020 17:36:RADHA Lopez) Method of Delivery 58a. Forceps - Unsuccessful A: N/A (06/27/2020 17:36:RADHA Lopez) 58b. Vacuum - Unsuccessful A: N/A (06/27/2020 17:36:Andra Bellavance, RNC) 58c. Presentation at 58c. Presentation at - A : Vertex (06/27/2020 17:36:Andra Bellavance, RNC) 58c. Presentation at - A : N/A (06/27/2020 17:36:Andra Bellavance, RNC) 58c. Presentation at - A : Cephalic (06/27/2020 17:36:Nadra Bellavance, RNC) Final Route and Method of Del 58d. Baby A Route/Delivery: Vaginal (08/31/2020 00:03:Andra Bellavance, RNC) 58e. Trial of Labor Attempted: No (06/27/2020 17:36:Andra Bellavance, RNC) 58e. Trial of Labor Attempted A: N/A (06/27/2020 17:36:Andra Bellavance, RNC) 58e. Trial of Labor Attempted B: N/A (06/27/2020 17:36:Andra Bellavance, RNC) Maternal Morbidity 59b. 3rd or 4th Degree Lacs: Perineal (06/27/2020 17:36:Anrda Bellavance, RNC) 59b. 3rd or 4th Degree Lacs: First Degree (06/27/2020 17:36:Wander Fuller, RN) Birthweight Baby A: 3329 (06/27/2020 17:36:Wander Fuller RN) 60a. Pounds : 7 (06/27/2020 17:36:QS system process) 60b. Ounces: 5 (06/27/2020 17:36:QS system process) 61. GA at Delivery Baby A: 40.1 (06/27/2020 17:36:Andra Carrillo [facility]) : Full Term- 39- 40.6 Weeks (06/27/2020 17:36:QS system process) 62a. 5 Minute Baby A: 9 (06/27/2020 17:36:QS system process)
[2020-08-31] MEDS: IBUPROFEN 800 MG TABLET PO SCH ×4 (02:43→22:12)
[2020-08-31] MEDS ORDERED: METHYLERGONOVINE MALEATE INJ/PF 0.2 MG/1 ML AMPULE ONE (03:19)
[2020-08-31] MEDS ORDERED: LOPERAMIDE HCL 2 MG CAPSULE ONE (03:26)
[2020-08-31] MEDS ORDERED: CARBOPROST TROMETHAMINE INJ 250 MCG/1 ML AMPULE ONE (03:26)
[2020-08-31] MEDS: ACETAMINOPHEN WITH CODEINE #3 TABLET PO PRN ×3 (03:58→18:54)
[2020-08-31 03:59] LABS: HEMATOCRIT 30.8 % (36.0-47.0); HEMOGLOBIN 10.5 g/dL (12.0-15.5); MEAN CORPUSCULAR HEMOGLOBIN 28.5 pg (27.0-33.4); MEAN CORPUSCULAR HGB CONC 33.9 g/dL (32.0-36.0); MEAN CORPUSCULAR VOLUME 84 fl (80-97); PLATELET COUNT 158 10^3/uL (150-450); RED BLOOD COUNT 3.67 10^6/uL (3.72-5.28); WHITE BLOOD COUNT 11.8 10^3/uL (4.0-10.5)
[2020-08-31] MEDS: METHYLERGONOVINE MALEATE 0.2 MG TABLET PO SCH ×4 (04:28→17:42)
[2020-08-31] MEDS ORDERED: METHYLERGONOVINE MALEATE INJ/PF 0.2 MG/1 ML AMPULE IM ONE (04:30)
[2020-08-31] MEDS ORDERED: MISOPROSTOL 0.2 MG TABLET PR ONE (04:30)
[2020-08-31] MEDS ORDERED: RINGERS SOLUTION,LACTATED 1,000 ML IV ONE (04:30)
[2020-08-31] MEDS ORDERED: OXYTOCIN 10 UNIT/ML VIAL IV ONE (04:30)
[2020-08-31] MEDS: CEFAZOLIN 2 GM/D5W RTU 2 GM/50 ML RTUPB IV SCH ×3 (06:54→22:13)
[2020-08-31] MEDS ORDERED: BUTALB/ACETAMINOPHEN/CAFFEINE 1 TAB EACH PO ONE (07:00)
--- NOTE | 2020-08-31 10:00 | PDOC PROGRESS REPORT ---
Subjective-OB Progress Note for:: 08/31/20 Subjective: PPD 0. Pt doing well, no concerns but is sore. She is getting PRBCs, reports eating breakfast. FC to BSD with clear yellow urine, has not been oob yet. Physical Exam (OB) Vital Signs: Temp Pulse Resp BP Pulse Ox 98.1 F 69 20 104/62 100 08/31/20 09:03 08/31/20 09:03 08/31/20 09:03 08/31/20 09:03 08/31/20 09:03 Intake & Output 08/30/20 08/31/20 09/01/20 06:59 06:59 06:59 Intake Total 0 Output Total 6 Balance -2135 Weight 61.1 kg - General General Appearance: Alert In distress: None - Maternal Morbidity 59. Maternal Morbidity (serious complications experinced by the mother associated with labor and delivery: Maternal transfusion - Lochia Lochia Amount: Small 10-25 ml Lochia Color: Rubra/Red - Abdomen Description: Soft Hernia Present: No Fundal Description: Firm, Midline Fundal Height: u/u - u/2 Objective-Diagnostic Laboratory: 08/31/20 03:53 08/30/20 08/30/20 08/30/20 16:40 17:12 18:12 WBC 6.4 RBC 3.96 Hgb 11.5 L Hct 32.7 L MCV 83 MCH 29.1 MCHC 35.3 RDW 14.3 H Plt Count 173 Seg Neutrophils % 69.7 Urine Color COLORLESS Urine Appearance CLEAR Urine pH 6.0 Ur Specific [place] 1.002 Urine Protein NEGATIVE Urine Glucose (UA) NEGATIVE Urine Ketones NEGATIVE Urine Blood NEGATIVE Urine Nitrite NEGATIVE Ur Leukocyte Esterase NEGATIVE Blood Type A POSITIVE Antibody Screen NEGATIVE 08/31/20 03:53 WBC 11.8 H RBC 3.67 L Hgb 10.5 L Hct 30.8 L MCV 84 MCH 28.5 MCHC 33.9 RDW 14.0 Plt Count 158 Seg Neutrophils % Urine Color Urine Appearance Urine pH Ur Specific [place] Urine Protein Urine Glucose (UA) Urine Ketones Urine Blood Urine Nitrite Ur Leukocyte Esterase Blood Type Antibody Screen Assessment and Plan(PN) - Assessment and Plan (1) Third-stage hemorrhage, Is this a current diagnosis for this admission?: Yes (2) (normal spontaneous vaginal delivery) Is this a current diagnosis for this admission?: Yes (3) normal course Is this a current diagnosis for this admission?: Yes - Time Spent with Patient Time with patient: Less than 15 minutes Smoking Education Provided: Over 3 minutes Medications reviewed and adjusted accordingly: Yes - Disposition Anticipated Discharge Disposition: Home, Self Care Anticipated Discharge Timeframe: within 48 hours
[2020-08-31] MEDS: FERROUS SULFATE 325 MG TABLET PO SCH ×2 (10:03→17:42)
[2020-08-31] MEDS: SENNOSIDES/DOCUSATE 8.6-50 MG 1 EACH TABLET PO SCH (10:03)
[2020-08-31] MEDS: PRENATAL VITAMIN W DHA CAPSULE PO SCH (10:03)
[2020-08-31] MEDS: DOCUSATE SODIUM 100 MG CAPSULE PO SCH ×2 (10:03→17:42)
[2020-08-31] MEDS ORDERED: OXYTOCIN 10 UNIT/ML VIAL ONE (12:00)
[2020-08-31] MEDS ORDERED: MISOPROSTOL 0.2 MG TABLET ONE (12:00)
[2020-08-31] MEDS ORDERED: ALBUTEROL SULFATE 0.083% NEB 2.5 MG/3 ML AMPUL NEB ONE (14:30)
[2020-09-01] MEDS: METHYLERGONOVINE MALEATE 0.2 MG TABLET PO SCH ×2 (00:06→05:35)
[2020-09-01] MEDS: ACETAMINOPHEN WITH CODEINE #3 TABLET PO PRN ×2 (00:23→16:10)
[2020-09-01] MEDS: IBUPROFEN 800 MG TABLET PO SCH ×3 (05:35→22:57)
[2020-09-01 07:27] LABS: HEMATOCRIT 35.8 % (36.0-47.0); HEMOGLOBIN 12.5 g/dL (12.0-15.5); MEAN CORPUSCULAR HEMOGLOBIN 29.8 pg (27.0-33.4); MEAN CORPUSCULAR HGB CONC 34.8 g/dL (32.0-36.0); MEAN CORPUSCULAR VOLUME 86 fl (80-97); PLATELET COUNT 116 10^3/uL (150-450); RED BLOOD COUNT 4.19 10^6/uL (3.72-5.28); RED CELL DISTRIBUTION WIDTH 15.3 % (11.5-14.0); WHITE BLOOD COUNT 8.1 10^3/uL (4.0-10.5)
[2020-09-01] MEDS ORDERED: METHYLERGONOVINE MALEATE 0.2 MG TABLET PO SCH ×2 (07:30→12:00)
[2020-09-01] MEDS: SENNOSIDES/DOCUSATE 8.6-50 MG 1 EACH TABLET PO SCH (09:09)
[2020-09-01] MEDS: DOCUSATE SODIUM 100 MG CAPSULE PO SCH ×2 (09:09→17:22)
[2020-09-01] MEDS: FERROUS SULFATE 325 MG TABLET PO SCH ×2 (09:10→17:22)
[2020-09-01] MEDS: PRENATAL VITAMIN W DHA CAPSULE PO SCH (09:10)
--- NOTE | 2020-09-01 09:55 | PDOC PROGRESS REPORT ---
Subjective-OB Progress Note for:: 09/01/20 Subjective: Pt reports feeling good today, ready to get out of bed. She still has FC to BSD w clear urine. Bleeding is light. Regular diet. Physical Exam (OB) Vital Signs: Temp Pulse Resp BP Pulse Ox 97.3 F 71 16 102/62 99 09/01/20 09:15 09/01/20 07:02 09/01/20 07:02 09/01/20 07:02 09/01/20 07:02 Intake & Output 08/31/20 09/01/20 09/02/20 06:59 06:59 06:59 Intake Total 0 1420 Output Total 2136 2600 700 Balance -2136 -1180 -700 Weight 61.1 kg - PIH/Pre-Eclampsia Clonus: Negative Headache: Present Epigastric Pain: No Visual Changes: No - Maternal Morbidity 59. Maternal Morbidity (serious complications experinced by the mother associated with labor and delivery: Maternal transfusion - Lochia Lochia Amount: Small 10-25 ml Lochia Color: Rubra/Red - Abdomen Description: Soft Hernia Present: No Fundal Description: Firm, Midline Fundal Height: u/u - u/2 - Extremities Upper extremity: Normal inspection Extremities Note: Homans neg bilaterally, TEDS SCDS on Objective-Diagnostic Laboratory: 09/01/20 06:58 08/30/20 09/01/20 17:12 06:58 WBC 8.1 RBC 4.19 Hgb 12.5 Hct 35.8 L MCV 86 MCH 29.8 MCHC 34.8 RDW 15.3 H Plt Count 116 L Blood Type A POSITIVE Antibody Screen NEGATIVE Assessment and Plan(PN) - Assessment and Plan (1) Third-stage hemorrhage, Is this a current diagnosis for this admission?: Yes (2) (normal spontaneous vaginal delivery) Is this a current diagnosis for this admission?: Yes (3) normal course Is this a current diagnosis for this admission?: Yes (4) Acute blood loss anemia Is this a current diagnosis for this admission?: Yes Plan:: remove FC today, encourage ambulation - Time Spent with Patient Time with patient: Less than 15 minutes Smoking Education Provided: Over 3 minutes Medications reviewed and adjusted accordingly: Yes - Disposition Anticipated Discharge Disposition: Home, Self Care Anticipated Discharge Timeframe: within 24 hours
[2020-09-02] MEDS: ACETAMINOPHEN WITH CODEINE #3 TABLET PO PRN (03:56)
[2020-09-02] MEDS: IBUPROFEN 800 MG TABLET PO SCH ×2 (05:46→13:26)
[2020-09-02] MEDS: PRENATAL VITAMIN W DHA CAPSULE PO SCH (09:24)
[2020-09-02] MEDS: DOCUSATE SODIUM 100 MG CAPSULE PO SCH (09:24)
[2020-09-02] MEDS: FERROUS SULFATE 325 MG TABLET PO SCH (09:24)
[2020-09-02] MEDS: SENNOSIDES/DOCUSATE 8.6-50 MG 1 EACH TABLET PO SCH (09:27)
--- NOTE | 2020-09-02 09:40 | PDOC DISCHARGE SUMMARY ---
Impression - Admit/DC Date/PCP Admission Date/Primary Care Provider: 08/30/20 17:55 LIZ MORALES Discharge Date: 09/02/20 - Discharge Diagnosis (1) Third-stage hemorrhage, Is this a current diagnosis for this admission?: Yes (2) (normal spontaneous vaginal delivery) Is this a current diagnosis for this admission?: Yes (3) normal course Is this a current diagnosis for this admission?: Yes (4) Acute blood loss anemia Is this a current diagnosis for this admission?: Yes - Additional Information Resuscitation Status: Full Code Discharge Diet: Regular Discharge Activity: Balance Activity w/Rest, Pelvic Rest Referrals: PRERNA WOODWARD ARNP [Primary Care Provider] - Prescriptions: Ibuprofen [Motrin 800 mg Tablet] 800 mg PO Q8HP PRN #60 tablet PRN Reason: Home Medications: Pnv,Calcium 72/Iron,Carb/Folic [ Plus Iron Tablet] 1 tab PO DAILY 05/05/13 Ibuprofen [Motrin 800 mg Tablet] 800 mg PO Q8HP PRN #60 tablet 09/02/20 HPI Gestational Age: 40.1 Reason(s) for Admission: Onset of Labor, PROM Procedures: NST Intrapartum Procedure(s): Spontaneous Vaginal Delivery Complication(s): Laceration-Perineal Laceration-Degree: 1st Hospital Course 59. Maternal Morbidity (serious complications experinced by the mother associated with labor and delivery: Maternal transfusion Results Laboratory Results: WBC 8.1 10^3/uL (4.0-10.5) 09/01/20 06:58 RBC 4.19 10^6/uL (3.72-5.28) 09/01/20 06:58 Hgb 12.5 g/dL (12.0-15.5) 09/01/20 06:58 Hct 35.8 % (36.0-47.0) L 09/01/20 06:58 MCV 86 fl (80-97) 09/01/20 06:58 MCH 29.8 pg (27.0-33.4) 09/01/20 06:58 MCHC 34.8 g/dL (32.0-36.0) 09/01/20 06:58 RDW 15.3 % (11.5-14.0) H 12/31/20 06:58 Plt Count 116 10^3/uL (150-450) L 09/01/20 06:58 Lymph % (Auto) 22.1 % (13-45) 08/30/20 18:12 [place] % (Auto) 7.0 % (3-13) 08/30/20 18:12 Eos % (Auto) 0.6 % (0-6) 08/30/20 18:12 Baso % (Auto) 0.6 % (0-2) 08/30/20 18:12 Absolute Neuts (auto) 4.4 10^3/uL (1.7-8.2) 08/30/20 18:12 Absolute Lymphs (auto) 1.4 10^3/uL (0.5-4.7) 08/30/20 18:12 Absolute Monos (auto) 0.4 10^3/uL (0.1-1.4) 08/30/20 18:12 Absolute Eos (auto) 0.0 10^3/uL (0.0-0.6) 08/30/20 18:12 Absolute Basos (auto) 0.0 10^3/uL (0.0-0.2) 08/30/20 18:12 Seg Neutrophils % 69.7 % (42-78) 08/30/20 18:12 Urine Color COLORLESS 08/30/20 16:40 Urine Appearance CLEAR 08/30/20 16:40 Urine pH 6.0 (5.0-9.0) 08/30/20 16:40 Ur Specific [place] 1.002 08/30/20 16:40 Urine Protein NEGATIVE mg/dL (NEGATIVE) 08/30/20 16:40 Urine Glucose (UA) NEGATIVE mg/dL (NEGATIVE) 08/30/20 16:40 Urine Ketones NEGATIVE mg/dL (NEGATIVE) 08/30/20 16:40 Urine Blood NEGATIVE (NEGATIVE) 08/30/20 16:40 Urine Nitrite NEGATIVE (NEGATIVE) 08/30/20 16:40 Urine Bilirubin NEGATIVE (NEGATIVE) 08/30/20 16:40 Urine Urobilinogen NEGATIVE mg/dL (<2.0) 08/30/20 16:40 Ur Leukocyte Esterase NEGATIVE (NEGATIVE) 08/30/20 16:40 Urine Ascorbic Acid NEGATIVE (NEGATIVE) 08/30/20 16:40 Membranes Rupture POSITIVE (NEGATIVE) H 08/30/20 16:45 Urine Opiates Screen NEGATIVE 08/30/20 16:40 Urine Methadone Screen NEGATIVE 08/30/20 16:40 Ur Barbiturates Screen NEGATIVE 08/30/20 16:40 Ur Phencyclidine Scrn NEGATIVE 08/30/20 16:40 Ur Amphetamines Screen NEGATIVE 08/30/20 16:40 U Benzodiazepines Scrn NEGATIVE 08/30/20 16:40 Urine Cocaine Screen NEGATIVE 08/30/20 16:40 U Marijuana (THC) Screen NEGATIVE 08/30/20 16:40 RPR NONREACTIVE (NONREACTIVE) 08/30/20 18:12 Blood Type A POSITIVE 08/30/20 17:12 Blood Type Confirm A POSITIVE 08/30/20 17:12 Antibody Screen NEGATIVE 08/30/20 17:12 Crossmatch See Detail 08/30/20 17:12 Plan Plan of Treatment: f/u at [facility] 4 wks Time Spent: Less than 30 Minutes
[2020-09-02 12:32] VITALS: BP 103/56
== END 2020-09-02 14:30 | disposition home or self-care (01) | DRG 806 ==
LOC: LC 16:18 → LR 17:55 → 2S 08-31 02:21
PROVIDERS: ADMIT Obstetrics & Gynecology; ATTEND Obstetrics & Gynecology
PROC: 10E0XZZ Delivery of Products of Conception, External Approach (ICD-10-PCS; principal; 2020-08-31)
PROC: 0HQ9XZZ Repair Perineum Skin, External Approach (ICD-10-PCS; 2020-08-31)
PROC: 30233N1 Transfusion of Nonautologous Red Blood Cells into Peripheral Vein, Percutaneous Approach (ICD-10-PCS; 2020-08-31)
DX: O48.0 Post-term pregnancy (principal); D62 Acute posthemorrhagic anemia; Z37.0 Single live birth; O72.0 Third-stage hemorrhage; O70.0 First degree perineal laceration during delivery; O90.81 Anemia of the puerperium; O69.1XX0 Labor and delivery complicated by cord around neck, with compression, not applicable or unspecified; Z20.822 Contact with and (suspected) exposure to COVID-19; Z3A.40 40 weeks gestation of pregnancy
CPT/HCPCS: 36415; 36430; 80307; 81005; 84112; 85025; 85027; 86592; 86850; 86900; 86901; 86920; 86922; 94640; J0690; J2210; J2590; J3490; J7120; J7613; P9016